=== PATIENT | female | born 1950 | race Caucasian/White ===

== ENCOUNTER 2017-10-15 06:04 | Day surgery (SDC) | payer MEDICARE, BC ==
[2017-10-15] MEDS ORDERED: Dextrose 5%-Lactated Ringers 1,000 ML IV SCH (06:30)
[2017-10-15] MEDS ORDERED: Propofol 200 MG/20 ML SDV ONE (07:09)
[2017-10-15] MEDS ORDERED: fentaNYL 100 MCG/2 ML SDV ONE (07:09)
[2017-10-15] MEDS ORDERED: Midazolam 1 MG/ML 2 ML SDV ONE (07:09)
[2017-10-15] MEDS ORDERED: Ondansetron 4 MG/2 ML SDV ONE (08:02)
--- NOTE | 2017-10-25 12:32 | OR ---
DATE OF PROCEDURE: 10/15/2017 PREOPERATIVE DIAGNOSIS: Indications for screening colonoscopy. POSTOPERATIVE DIAGNOSIS: Normal screening colonoscopy. OPERATIVE PROCEDURE: Flexible colonoscopy. ANESTHESIA: IV sedation. INDICATION FOR PROCEDURE: A 67-year-old presenting with indications for screening colonoscopy. Plan is to proceed with colonoscopy with biopsies and/or polypectomy as indicated. Potential risks including bleeding and perforation were discussed, and the patient wishes to proceed. DETAILS OF PROCEDURE: The patient was taken to the operating room and placed in a left lateral decubitus position. IV sedation was administered, after which the initial digital rectal exam was performed and was unremarkable. Colonoscope was then passed to the level of the rectum with retroflexion revealing uncomplicated hemorrhoidal columns. The scope was then passed eventually to the cecum. The prep was quite good with there only being a small amount of liquid stool present to that level, no abnormalities were noted. Specifically, no diverticula, no areas of colitis, and no polyps or other signs of neoplasia were seen. The scope was then withdrawn, the above findings reconfirmed, and the procedure concluded. The patient does not report a family history of colon carcinoma. Given this, the next colonoscopy should be planned in 10 years. Darrian Eubanks MD /[id number]
== END 2017-10-15 10:05 | disposition home or self-care (01) ==
LOC: JP.SDS 06:04
PROVIDERS: ATTEND Surgery
DX: Z12.11 Encounter for screening for malignant neoplasm of colon (principal); M81.0 Age-related osteoporosis without current pathological fracture; K64.9 Unspecified hemorrhoids
CPT/HCPCS: 45378; J2250; J2405; J2704; J3010; J7042